=== PATIENT | female | born 1985 | race Caucasian/White ===

== ENCOUNTER → 2018-07-07 | Outpatient (CLI) | payer BC ==
[2018-07-07 17:31] LABS: Anion Gap 10 mmol/L; Blood Urea Nitrogen 8 mg/dL (7-17); Carbon Dioxide 26 mmol/L (22-30); Chloride 105 mmol/L (98-107); Glucose 96 mg/dL (74-99); Potassium 4.3 mmol/L (3.5-5.1); Sodium 141 mmol/L (137-145)
[2018-07-07 17:34] LABS: Basophils # (A) 0.1 k/uL (0-0.2); Basophils % (A) 1 %; Eosinophils # (A) 0.2 k/uL (0-0.7); Eosinophils % (A) 4 %; HCT 37.5 % (34.0-46.0); HGB 12.6 gm/dL (11.4-16.0); Lymphocytes # (A) 2.2 k/uL (1.0-4.8); Lymphocytes % (A) 37 %; MCH 29.9 pg (25.0-35.0); MCHC 33.7 g/dL (31.0-37.0); MCV 88.6 fL (80.0-100.0); Mean Platelet Volume 9.8; Monocytes # (A) 0.4 k/uL (0-1.0); Monocytes % (A) 7 %; Neutrophils % (A) 50 %; Platelet Count 185 k/uL (150-450); RBC 4.23 m/uL (3.80-5.40)
== END | disposition home or self-care (01) ==
LOC: LABPAT 16:41
PROVIDERS: ATTEND Obstetrics & Gynecology
DX: Z01.818 Encounter for other preprocedural examination (principal)
CPT/HCPCS: 36415; 80051; 82565; 82947; 84520; 85025; 87086

== ENCOUNTER 2018-07-13 05:34 | Day surgery (SDC) | payer BC ==
--- NOTE | 2018-07-08 16:33 | HP ---
HISTORY AND PHYSICAL DATE OF ADMISSION: 07/12/2018. HISTORY: This is a 33-year-old 5, para 3-0-2-3 woman with a long-standing history of severe dysmenorrhea, menorrhagia and pelvic pain. She has findings of adenomyosis on pelvic ultrasound. She desires definitive surgical management for her severe symptoms in the form of robotic-assisted laparoscopic-assisted vaginal hysterectomy. ALLERGIES: NONE. MEDICATIONS: 1. Anaprox DS 550 mg b.i.d. p.r.n. 2. Fluvoxamine 25 mg at bedtime. PAST MEDICAL HISTORY: Osteogenesis imperfecta. PAST SURGICAL HISTORY: section x3, in 2002, 2007 and 2008. [employer] INSTALLER HISTORY: She is a 5, para 3-0-2-3 with a history of 3 sections and 2 spontaneous miscarriages. She has had a tubal ligation and no history of abnormal Pap smears or STDs. SOCIAL HISTORY: She is engaged to be . She denies tobacco, alcohol or drug use. FAMILY HISTORY: Osteogenesis imperfecta in multiple family members. REVIEW OF SYSTEMS: Positive for severe dysmenorrhea, dyspareunia, menorrhagia and pelvic pain. Positive for bone fractures in the past. Negative for fevers, chills, weight gain, weight loss, shortness of breath, chest pain, nausea, vomiting, bowel changes, dysuria, hematuria, headaches or other neurologic signs, depression, anxiety. PHYSICAL EXAMINATION: Height 5 feet 3-3/4 inches, weight 118 pounds, blood pressure 110/80. In general, this is a pleasant female who is slim and in no apparent distress. HEENT exam is unremarkable, with no palpable lymphadenopathy or thyromegaly. The lungs are clear to auscultation bilaterally. Her heart has a regular rate and rhythm with no detectable murmur. The abdomen is slim, soft and with mild generalized lower quadrant tenderness but no rebound, no guarding and no flank pain. On pelvic examination, she has normal female external genitalia without lesions or irritation. On bimanual examination, the uterus is small but tender, with no palpable adnexal or pelvic masses noted. ASSESSMENT: This is a 33-year-old 5, para 3-0-2-3 woman with a history of dysmenorrhea, menorrhagia, pelvic pain and adenomyosis on pelvic imaging. She has had a tubal ligation. She desires definitive surgical management via hysterectomy. She is scheduled to undergo robotic-assisted laparoscopic-assisted vaginal hysterectomy with diagnostic cystoscopy. The risks of these procedures have been discussed and include but are not limited to bleeding, transfusion, damage to bowel, bladder, ureters, other pelvic or intraabdominal structures, infection, ongoing pelvic pain, anesthesia complications, DVT, PE and/or . The patient understands that her risks of possible bladder injury are higher secondary to her history of 3 previous sections. The anesthesiologist and the operating room team will be notified regarding her history of osteogenesis imperfecta with extra care taken at the time of positioning. The patient understands all these risks and agrees to proceed and consent has been obtained. MMODL / IJN: [id number] /
[~2018-07-13 05:34] MED LIST: ceFAZolin IN SWFI 2 GM/20 ML SYRINGE IVP ONE
[2018-07-13] MEDS ORDERED: MIDAZOLAM (PF) 2 MG/2 ML VIAL IV PRN (05:35)
[2018-07-13] MEDS ORDERED: ONDANSETRON 4 MG/2 ML VIAL IVP ONE (05:35)
[2018-07-13] MEDS ORDERED: DEXAMETHASONE SOD PHOSPHATE 10 MG/ML 1 ML VIAL IV ONE (05:35)
[2018-07-13] MEDS ORDERED: fentaNYL (PF) 50 MCG/ML 2 ML AMP IV PRN (05:35)
[2018-07-13] MEDS: LIDOCAINE 1% 20 ML VIAL (10MG/ML) FOR IV START INTRADERMA PRN ×2 (06:30→06:33)
[2018-07-13] MEDS: LACTATED RINGERS 1,000 ML IV SCH ×3 (06:33→19:57)
[2018-07-13] MEDS ORDERED: GLYCOPYRROLATE 0.2 MG/ML 2 ML VIAL ONE (07:24)
[2018-07-13] MEDS ORDERED: ROCURONIUM BROMIDE 10 MG/ML 10 ML VIAL IV ONE (07:24)
[2018-07-13] MEDS ORDERED: fentaNYL (PF) 50 MCG/ML 2 ML AMP ONE (07:24)
[2018-07-13] MEDS ORDERED: MIDAZOLAM 2 MG/2 ML VIAL ONE (07:24)
[2018-07-13] MEDS ORDERED: diphenhydrAMINE 50 MG/ML 1 ML VIAL ONE (07:24)
[2018-07-13] MEDS ORDERED: ESMOLOL 100 MG/10 ML VIAL ONE (07:24)
[2018-07-13] MEDS ORDERED: HYDROmorphone (PF) 1 MG/ML ONE (07:24)
[2018-07-13] MEDS ORDERED: PROPOFOL 10 MG/ML 20 ML VIAL IV ONE (07:24)
[2018-07-13] MEDS ORDERED: LIDOCAINE 1% INJ 10MG/ML (20 ML MDV) ONE (07:24)
[2018-07-13] MEDS ORDERED: NEOSTIGMINE 1 MG/ML 10 ML VIAL ONE (07:24)
[2018-07-13] MEDS ORDERED: BUPIVACAINE (PF) 0.5% 30 ML VIAL SQ ONE (08:09)
[2018-07-13] MEDS ORDERED: ACETAMINOPHEN IV (For NPO) 1,000 MG in EMPTY BAG 1 BAG IVPB ONE (10:00)
[2018-07-13] MEDS ORDERED: SIMETHICONE 80 MG CHEWABLE PO PRN (10:00)
[2018-07-13] MEDS ORDERED: METOCLOPRAMIDE 5 MG/ML 2 ML VIAL IVP PRN (10:00)
[2018-07-13] MEDS ORDERED: ONDANSETRON 4 MG/2 ML VIAL IVP PRN (10:00)
[2018-07-13] MEDS ORDERED: Acetaminophen-Codeine 300-30mg TAB PO PRN (10:00)
[2018-07-13] MEDS ORDERED: diphenhydrAMINE 50 MG/ML 1 ML VIAL IVP PRN (10:00)
--- NOTE | 2018-07-13 10:00 | P.OP ---
Date of Procedure: 07/13/18 Preoperative Diagnosis: Dysmenorrhea, menorrhagia, pelvic pain, adenomyosis Postoperative Diagnosis: Same plus extensive pelvic adhesions, bilateral hydrosalpinx Procedure(s) Performed: Robotic-assisted laparoscopic assisted vaginal hysterectomy, bilateral salpingectomy, left oophorectomy and cystoscopy Anesthesia: LOBITO Surgeon: Elissa Thompson Supervisor Bottle Machines #1: Dyan Garcia Estimated Blood Loss (ml): 50 IV fluids (ml): 600 Urine output (ml): 500 Pathology: other (Uterus, bilateral fallopian tubes and left ovary) Disposition: PACU Operative Findings: Uterus with small anterior fibroid, bilateral hydrosalpinx and evidence of previous tubal ligation, dense pelvic adhesions involving the bladder to the anterior low uterine segment and the left adnexa to the posterior cornea of the uterus Description of Procedure: After the patient and her family were met in the preoperative holding area and all questions were answered, she was taken to the operating room where anesthetic was administered without incident. She was in positioned, prepped and draped in the dorsal lithotomy position. Speculum was placed in the vagina and the cervix was grasped anteriorly with a single-tooth tenaculum. The uterus was sounded to 9 cm. Cervix was then sequentially dilated with Hegar dilators to allow for insertion of the BioActor uterine manipulator. This was inserted and the balloon inflated with tendency's of air. The cup was secured around the cervix. Mg catheter was then placed in the bladder. Attention was then turned to the abdomen. Gloves were changed on an days supraumbilical skin incision was made. The anterior abdominal wall was grasped and elevated. The patient was then inserted without difficulty. Saline drop test indicated intraperitoneal placement. CO2 gas was then connected and initial filling pressure was 3 mm. The abdomen was then insufflated to a total filling pressure of 15 mm of CO2 gas. The Veress needle was removed and the blade less 12 mmtrocar was then utilized to introduce the camera under direct visualization. Intraperitoneal placement was confirmed. The patient was placed in steep Trendelenburg. Under direct visualization a right and left da Federico ports were placed and a right upper quadrant 10 mm assistant refinery operator port was placed. The robot was then docked per protocol without difficulty. The bipolar Franchesca graspers were placed in arm 2 and the monopolar kathy were placed in arm 1. At this time I went to the console. The above findings were noted in the pelvis. The right on fallopian tube was grasped, elevated and the the mesosalpinx sharply dissected away from the underlying ovary. The tubo-ovarian pedicle was then sequentially cauterized and cut. The round ligament was sequentially cauterized and cut. The anterior and posterior leaves of the broad ligament did not easily separate secondary to extensive scarring. Therefore this was carefully and meticulously on dissected away down to the level of the uterine vasculature. The bladder was addressed using sharp monopolar cautery to take down the dense adhesions at the pre-existing scar. Sponge was introduced into the pelvis to allow for further careful delicate blunt dissection. The scarring was significantly vascularity and care was taken to control bleeding using the electrocautery away from the area of the bladder. The left side was then addressed. The left ovary was adherent to the left cornua of the uterus with no avascular plane on noted. I did not feel as though the ovary could be easily away without creating bleeding or compromising the ovarian vasculature. Decision therefore was made to take the left ovary. The infundibulopelvic ligament on the left was then sequentially cauterized and cut the round ligament was sequentially cauterized and cut. The anterior posterior leaves of the broad ligament did separate better on the left side and the anterior leaf was incised down to the level of the pre-existing bladder dissection. Further careful dissection allowed for eventual advancement of the bladder anteriorly using a 4 x 4 sponge. The uterine vasculature on the left was then sequentially cauterized. Blanching of the uterus was noted. Sponge was placed in the vagina for preservation the pneumoperitoneum and anterior colpotomy was then made. This was carried around circumferentially following the cervical cup without difficulty. With completion of the colpotomy the uterus was delivered into the vagina. Instrument for changed introducing a needle shuttle truck driver to arm 1 and one grasper to arm 2. The vaginal cuff was copiously irrigated and no active bleeding was noted. The vaginal cuff was then closed using self locking 2-0 Vicryl suture in a running fashion. There was some minimal bleeding noted at the right aspect of the cuff which was controlled by reintroducing the [place] bipolar electrocautery. The course of the right ureter was easily identified the course of the left ureter was not secondary to normal bowel reflection in the area. FloSeal was placed prophylactically along the vaginal cuff for further hemostasis and all surgical sites were observed and noted to be hemostatic. Attention was then turned to the cystoscopy the 30 cystoscope was introduced into the bladder. The interior of the bladder did appear hypervascular however no obvious injuries were noted and the right and left ureteral orifice easily were easily visualized and rapidly spilled clear urine from each side under direct visualization. The cystoscope was then removed and the instruments were removed from the abdomen and the robot was undocked and removed from the patient's bedside. Mg catheter was replaced in the bladder sponge was introduced into the vagina and no active bleeding was noted. All incisions were closed on the abdomen with 4-0 Vicryl suture in a subcutaneous fashion. All counts reported to me as correct by the operating room staff. The patient was awoken from anesthetic without incident and transported recovery area in good condition.
[2018-07-13] MEDS: HYDROmorphone 1 MG/ML 1 ML SYRINGE IVP ONE ×4 (10:25→10:49)
[2018-07-13] MEDS ORDERED: KETOROLAC 30 MG/ML 1 ML VIAL IVP ONE (10:34)
[2018-07-13] MEDS ORDERED: ACETAMINOPHEN IV (For NPO) 1,000 MG/100 ML VIAL IVPB ONE (10:59)
[2018-07-13 12:05] VITALS: BMI 20.7
[2018-07-13] MEDS: IBUPROFEN 600 MG TAB PO PRN (16:38)
[2018-07-13] MEDS: Acetaminophen-Codeine 300-30mg TAB PO PRN ×2 (18:05→23:12)
[2018-07-13] MEDS: SENNOSIDES-DOCUSATE SODIUM 1 EACH TAB PO SCH (20:07)
[2018-07-14] MEDS: IBUPROFEN 600 MG TAB PO PRN ×2 (02:12→08:39)
[2018-07-14] MEDS: LACTATED RINGERS 1,000 ML IV SCH ×2 (05:17→08:58)
[2018-07-14] MEDS: Acetaminophen-Codeine 300-30mg TAB PO PRN ×2 (05:26→11:33)
--- NOTE | 2018-07-14 07:52 | P.DS ---
Providers Expected date of discharge: 07/14/18 Attending physician: Elissa Thompson Primary care physician: Carmen Pérez - Discharge Diagnosis(es) (1) Dysmenorrhea Current Visit: Yes Status: Acute (2) Menorrhagia Current Visit: Yes Status: Acute (3) Pelvic pain Current Visit: Yes Status: Acute (4) Pelvic adhesions Current Visit: Yes Status: Acute (5) Hydrosalpinx Current Visit: Yes Status: Acute Hospital Course: This is a 33-year-old 5 para 3 woman who has a history of dysmenorrhea, menorrhagia, pelvic pain and adenomyosis on pelvic ultrasound who is admitted for surgical management. She underwent a robotic-assisted laparoscopic assisted vaginal hysterectomy with left oophorectomy and bilateral salpingectomy and lysis of pelvic adhesions on 07/13/2018. Intraoperative findings were remarkable for extensive pelvic adhesions involving the bladder to the low anterior uterine segment as well as bilateral hydrosalpinx and scarring of the left adnexa to the posterior cornea of the uterus. Please see the operative report for details. The patient's postoperative course was unremarkable. By the evening of postoperative day 0 she was tolerating a general diet. Her Mg catheter was removed and she was able to spontaneously void without difficulty. She had minimal vaginal bleeding. By the morning of postoperative day #1 she continued to do well. Her pain was controlled with oral pain medications. She had scant vaginal bleeding and was voiding without difficulty. Her abdomen was soft, nontender and her incisions were dry and intact. She was therefore discharged home on postoperative day #1 pending results of her routine postoperative labs. Procedures: Robotic-assisted laparoscopic assisted vaginal hysterectomy, bilateral salpingectomy, left oophorectomy, lysis of pelvic adhesions, cystoscopy Patient Condition at Discharge: Good Plan - Discharge Summary Discharge Rx Participant: No New Discharge Prescriptions: New Acetaminophen-Codeine 300-30mg [Tylenol w/codeine #3] 2 each PO Q6HR PRN #20 tab PRN Reason: Severe Pain Ibuprofen [Motrin] 600 mg PO Q6HR PRN tab PRN Reason: Mild Discomfort No Action Fluoxetine 1 tab PO HS Discharge Medication List Fluoxetine 1 tab PO HS 07/01/18 [History] Acetaminophen-Codeine 300-30mg [Tylenol w/codeine #3] 2 each PO Q6HR PRN #20 tab 07/14/18 [Rx] Ibuprofen [Motrin] 600 mg PO Q6HR PRN tab 07/14/18 [Rx] Follow up Appointment(s)/Referral(s): Elissa Thompson MD [STAFF PHYSICIAN] - 2 Weeks Activity/Diet/Wound Care/Special Instructions: Follow-up in the office in 2 weeks postoperatively. Notify the office with any concerning signs or symptoms including redness or foul drainage from the incisions, heavy vaginal bleeding, severe abdominal or pelvic pain, difficulty voiding, fever greater than 100.5, redness or swelling of the lower extremities. Nothing in the vagina, no intercourse for 8 weeks postoperatively. Avoid heavy lifting or vigorous activity until seen in the office postoperatively. Discharge Disposition: HOME SELF-CARE
[2018-07-14 08:06] LABS: Basophils % (A) 0 %; Eosinophils # (A) 0.1 k/uL (0-0.7); Eosinophils % (A) 1 %; HCT 26.6 % (34.0-46.0); Lymphocytes % (A) 28 %; MCH 30.1 pg (25.0-35.0); MCHC 34.3 g/dL (31.0-37.0); MCV 87.8 fL (80.0-100.0); Mean Platelet Volume 9.9; Monocytes # (A) 0.6 k/uL (0-1.0); Monocytes % (A) 8 %; Neutrophils # (A) 4.4 k/uL (1.3-7.7); Neutrophils % (A) 61 %; Platelet Count 117 k/uL (150-450); RBC 3.04 m/uL (3.80-5.40); RDW 12.7 % (11.5-15.5); WBC 7.2 k/uL (3.8-10.6)
[2018-07-14 08:09] LABS: HGB 9.1 gm/dL (11.4-16.0)
[2018-07-14] MEDS: SENNOSIDES-DOCUSATE SODIUM 1 EACH TAB PO SCH (08:40)
[2018-07-14 09:15] VITALS: BP 115/69; PULSE 88; RESP 16; TEMP 97.9
[2018-07-14] MEDS ORDERED: ONDANSETRON 4 MG TAB PO STA (11:26)
== END 2018-07-14 12:10 | disposition home or self-care (01) ==
LOC: OR 05:34 → 4FBP 10:11 → OR 07-14 12:10
PROVIDERS: ATTEND Obstetrics & Gynecology
DX: N92.0 Excessive and frequent menstruation with regular cycle (principal); N94.6 Dysmenorrhea, unspecified; N80.0 Endometriosis of uterus; N88.8 Other specified noninflammatory disorders of cervix uteri; N72 Inflammatory disease of cervix uteri; D25.2 Subserosal leiomyoma of uterus; N83.8 Other noninflammatory disorders of ovary, fallopian tube and broad ligament; N70.11 Chronic salpingitis; N73.6 Female pelvic peritoneal adhesions (postinfective); Q78.0 Osteogenesis imperfecta; F41.9 Anxiety disorder, unspecified; F32.9 Major depressive disorder, single episode, unspecified; Z82.79 Family history of other congenital malformations, deformations and chromosomal abnormalities; Z79.899 Other long term (current) drug therapy
CPT/HCPCS: 58552; S2900; 81025; 85025; 86850; 86900; 86901; 88307

== ENCOUNTER 2018-07-19 22:36 | Inpatient (IN) | payer BC ==
[2018-07-19] MEDS ORDERED: SODIUM CHLORIDE 0.9% 1,000 ML IV ONE (23:00)
[2018-07-19 23:19] LABS: Appearance,Urine Clear (Clear); Bilirubin,Urine Negative (Negative); Blood,Urine Moderate (Negative); Color,Urine Colorless; Glucose,Urine (UA) Negative (Negative); Ketones,Urine Negative (Negative); Leukocyte Esterase,Urine Negative (Negative); Nitrite,Urine Negative (Negative); Protein,Urine Negative (Negative); Specific Gravity,Urine 1.002 (1.001-1.035); Squamous Epithelial Cell,Urine 1 /hpf (0-4); Urobilinogen,Urine <2.0 mg/dL (<2.0); WBC,Urine 3 /hpf (0-5)
[2018-07-19 23:39] LABS: Basophils # (A) 0.1 k/uL (0-0.2); Basophils % (A) 0 %; Eosinophils # (A) 0.5 k/uL (0-0.7); Eosinophils % (A) 3 %; HCT 29.7 % (34.0-46.0); Lymphocytes % (A) 11 %; MCH 29.3 pg (25.0-35.0); MCHC 33.8 g/dL (31.0-37.0); MCV 86.7 fL (80.0-100.0); Mean Platelet Volume 9.8; Monocytes # (A) 1.2 k/uL (0-1.0); Monocytes % (A) 7 %; Neutrophils # (A) 13.4 k/uL (1.3-7.7); Neutrophils % (A) 77 %; RBC 3.42 m/uL (3.80-5.40); RDW 12.6 % (11.5-15.5); WBC 17.4 k/uL (3.8-10.6)
[2018-07-19 23:45] LABS: Platelet Count 239 k/uL (150-450)
[2018-07-19 23:48] LABS: ALT 51 U/L (9-52); AST 37 U/L (14-36); Albumin 4.2 g/dL (3.5-5.0); Alkaline Phosphatase 31 U/L (38-126); Anion Gap 11 mmol/L; Blood Urea Nitrogen 5 mg/dL (7-17); Calcium 9.6 mg/dL (8.4-10.2); Carbon Dioxide 31 mmol/L (22-30); Chloride 100 mmol/L (98-107); Glucose 89 mg/dL (74-99); Sodium 142 mmol/L (137-145); Total Bilirubin 1.3 mg/dL (0.2-1.3); Total Protein 7.1 g/dL (6.3-8.2)
[2018-07-19 23:50] LABS: INR 0.9 (<1.2); Partial Thromboplastin Time 25.5 sec (22.0-30.0); Prothrombin Time 9.9 sec (9.0-12.0)
[2018-07-19] MEDS ORDERED: POTASSIUM CHLORIDE ER 20 MEQ TAB.ER PO STA (23:58)
--- NOTE | 2018-07-20 01:43 | ED ---
Female Urogenital HPI - General Source: patient Mode of arrival: ambulatory Limitations: no limitations <Jaimee Bryan - Last Filed: 07/20/18 03:36> <Taty Steven - Last Filed: 07/20/18 07:33> - General Chief complaint: Vaginal Bleeding Stated complaint: Vaginal Bleeding, post-op Time Seen by Provider: 07/19/18 22:43 - History of Present Illness Initial comments: 33-year-old female patient who underwent transvaginal hysterectomy on 07/13/[address] Thompson presents to the emergency department today for evaluation of vaginal bleeding. Patient states she's also been sick over the last week with vomiting, diarrhea, and fever. States her temperature was 101.8F yesterday. Patient states she was resting on the couch today when she felt a gush of fluid from her vagina when she went to the bathroom she had soaked through a pad her underwear and pants with blood. Patient describes the blood as bright red. Denies any passage of clots. Denies any change to her abdominal discomfort, states she's had mild discomfort since the surgery. Patient denies any recent rash, shortness breath, chest pain, back pain, numbness, tingling, dizziness, weakness, hematuria, dysuria, urinary urgency, urinary frequency, headache, visual changes, or any other complaints. (Jaimee Bryan) - Related Data Home Medications Medication Instructions Recorded Confirmed Fluoxetine 1 tab PO HS 07/01/18 07/20/18 Previous Rx's Medication Instructions Recorded Acetaminophen-Codeine 300-30mg 2 each PO Q6HR PRN #20 tab 07/14/18 [Tylenol w/codeine #3] Ibuprofen [Motrin] 600 mg PO Q6HR PRN tab 07/14/18 Allergies Allergy/AdvReac Type Severity Reaction Status Date / Time latex Allergy Swelling Verified 07/19/18 22:40 Review of Systems ROS Other: All systems not noted in ROS Statement are negative. <Jaimee Bryan - Last Filed: 07/20/18 03:36> ROS Other: All systems not noted in ROS Statement are negative. <Taty Steven - Last Filed: 07/20/18 07:33> ROS Statement: Those systems with pertinent positive or pertinent negative responses have been documented in the HPI. Past Medical History Additional Past Medical History / Comment(s): adenomyosis, osteogenesis imperfecta, ovarian cysts History of Any Multi-Drug Resistant Organisms: None Reported Past Surgical History: Section, Hysterectomy, Orthopedic Surgery Additional Past Surgical History / Comment(s): left elbow Past Anesthesia/Blood Transfusion Reactions: No Reported Reaction Past Psychological History: Depression Smoking Status: Former smoker Past Alcohol Use History: Occasional Past Drug Use History: None Reported - Past Family History Mother Family Medical History: Cancer Additional Family Medical History / Comment(s): cervical <Jaimee Bryan M - Last Filed: 07/20/18 03:36> General Exam Limitations: no limitations General appearance: alert, in no apparent distress, other (This is a well- developed, well-nourished adult female patient in no acute distress. Vital signs upon presentation are temperature 98.3F, pulse 85, respirations 18, blood pressure 120/79, pulse ox 99% on room air.) Eye exam: Present: normal appearance, PERRL, EOMI. Absent: scleral icterus, conjunctival injection, periorbital swelling ENT exam: Present: normal exam, normal oropharynx, mucous membranes moist Respiratory exam: Present: normal lung sounds bilaterally. Absent: respiratory distress, wheezes, rales, rhonchi, stridor Cardiovascular Exam: Present: regular rate, normal rhythm, normal heart sounds. Absent: systolic murmur, diastolic murmur, rubs, gallop, clicks GI/Abdominal exam: Present: soft, tenderness (Mild suprapubic), normal bowel sounds. Absent: distended, guarding, rebound, rigid External exam: Present: normal external exam Speculum exam: Present: vaginal bleeding (Dark red vaginal bleeding noted) Neurological exam: Present: alert, oriented X3, CN II-XII intact Psychiatric exam: Present: normal affect, normal mood Skin exam: Present: warm, dry, intact, normal color. Absent: rash <Jaimee Bryan M - Last Filed: 07/20/18 03:36> Course Vital Signs 07/19/18 07/20/18 07/20/18 22:38 02:13 03:28 Temperature 98.3 F 98.1 F 98.5 F Pulse Rate 85 80 95 Respiratory 18 18 18 Rate Blood Pressure 120/79 113/73 111/78 O2 Sat by Pulse 99 95 100 Oximetry Medical Decision Making - Lab Data Result diagrams: 07/19/18 23:15 07/19/18 23:15 - Radiology Data Radiology results: report reviewed, image reviewed <Jaimee Bryan - Last Filed: 07/20/18 03:36> - Lab Data Result diagrams: 07/19/18 23:15 07/19/18 23:15 <Taty Steven - Last Filed: 07/20/18 07:33> - Medical Decision Making 33-year-old female patient presented to the emergency department today for evaluation of vaginal bleeding after transvaginal hysterectomy 1 week ago. Pelvic examination did reveal small amount of dark red vaginal bleeding. Labs reviewed and did reveal white blood cell count is 17.4, hemoglobin of 10, potassium of 3.0. Urinalysis shows no evidence for infection. CT abdomen and pelvis was obtained and did show abnormal fluid collections possible cuff dehiscence, and gas noted within the bladder. My attending Dr. Steven did discuss the case with the surgeon Dr. Thompson. She'll be started on Unasyn and admitted for further evaluation. (Jaimee Bryan) I personally saw and evaluated the patient, I offered to repeat the pelvic exam as the nurse practitioner was unable to visualize the vaginal cuff however the patient states that she does not want another pelvic exam at this time. I advised patient that based on her leukocytosis and her symptoms we do need to obtain a CT of the abdomen. CT did reveal multiple abnormalities which I discussed with her technical editor Dr. Thompson who recommends admission and IV antibiotics. Request that due to the presence of air in the bladder a Mg catheter be ordered. The plan was discussed with the patient who is agreeable. Patient was admitted to the gynecologic service (Taty Steven) - Lab Data Lab Results 07/19/18 07/19/18 07/19/18 Range/Units 23:09 23:15 23:15 WBC 17.4 H (3.8-10.6) k/uL RBC 3.42 L (3.80-5.40) m/uL Hgb 10.0 L (11.4-16.0) gm/dL Hct 29.7 L (34.0-46.0) % MCV 86.7 (80.0-100.0) fL MCH 29.3 (25.0-35.0) pg MCHC 33.8 (31.0-37.0) g/dL RDW 12.6 (11.5-15.5) % Plt Count 239 D (150-450) k/uL Neutrophils % 77 % Lymphocytes % 11 % Monocytes % 7 % Eosinophils % 3 % Basophils % 0 % Neutrophils # 13.4 H (1.3-7.7) k/uL Lymphocytes # 2.0 (1.0-4.8) k/uL Monocytes # 1.2 H (0-1.0) k/uL Eosinophils # 0.5 (0-0.7) k/uL Basophils # 0.1 (0-0.2) k/uL PT (9.0-12.0) sec INR (<1.2) APTT (22.0-30.0) sec Sodium 142 (137-145) mmol/L Potassium 3.0 L (3.5-5.1) mmol/L Chloride 100 (98-107) mmol/L Carbon Dioxide 31 H (22-30) mmol/L Anion Gap 11 mmol/L BUN 5 L (7-17) mg/dL Creatinine 0.50 L (0.52-1.04) mg/dL Est GFR (CKD-EPI)AfAm >90 (>60 ml/min/1.73 sqM) Est GFR (CKD-EPI)NonAf >90 (>60 ml/min/1.73 sqM) Glucose 89 (74-99) mg/dL Calcium 9.6 (8.4-10.2) mg/dL Magnesium (1.6-2.3) mg/dL Total Bilirubin 1.3 (0.2-1.3) mg/dL AST 37 H (14-36) U/L ALT 51 (9-52) U/L Alkaline Phosphatase 31 L (38-126) U/L Total Protein 7.1 (6.3-8.2) g/dL Albumin 4.2 (3.5-5.0) g/dL Urine Color Colorless Urine Appearance Clear (Clear) Urine pH 6.0 (5.0-8.0) Ur Specific Delta 1.002 (1.001-1.035) Urine Protein Negative (Negative) Urine Glucose (UA) Negative (Negative) Urine Ketones Negative (Negative) Urine Blood Moderate H (Negative) Urine Nitrite Negative (Negative) Urine Bilirubin Negative (Negative) Urine Urobilinogen <2.0 (<2.0) mg/dL Ur Leukocyte Esterase Negative (Negative) Urine WBC 3 (0-5) /hpf Ur Squamous Epith Cells 1 (0-4) /hpf 07/19/18 07/19/18 Range/Units 23:15 23:15 WBC (3.8-10.6) k/uL RBC (3.80-5.40) m/uL Hgb (11.4-16.0) gm/dL Hct (34.0-46.0) % MCV (80.0-100.0) fL MCH (25.0-35.0) pg MCHC (31.0-37.0) g/dL RDW (11.5-15.5) % Plt Count (150-450) k/uL Neutrophils % % Lymphocytes % % Monocytes % % Eosinophils % % Basophils % % Neutrophils # (1.3-7.7) k/uL Lymphocytes # (1.0-4.8) k/uL Monocytes # (0-1.0) k/uL Eosinophils # (0-0.7) k/uL Basophils # (0-0.2) k/uL PT 9.9 (9.0-12.0) sec INR 0.9 (<1.2) APTT 25.5 (22.0-30.0) sec Sodium (137-145) mmol/L Potassium (3.5-5.1) mmol/L Chloride (98-107) mmol/L Carbon Dioxide (22-30) mmol/L Anion Gap mmol/L BUN (7-17) mg/dL Creatinine (0.52-1.04) mg/dL Est GFR (CKD-EPI)AfAm (>60 ml/min/1.73 sqM) Est GFR (CKD-EPI)NonAf (>60 ml/min/1.73 sqM) Glucose (74-99) mg/dL Calcium (8.4-10.2) mg/dL Magnesium 2.2 (1.6-2.3) mg/dL Total Bilirubin (0.2-1.3) mg/dL AST (14-36) U/L ALT (9-52) U/L Alkaline Phosphatase (38-126) U/L Total Protein (6.3-8.2) g/dL Albumin (3.5-5.0) g/dL Urine Color Urine Appearance (Clear) Urine pH (5.0-8.0) Ur Specific Delta (1.001-1.035) Urine Protein (Negative) Urine Glucose (UA) (Negative) Urine Ketones (Negative) Urine Blood (Negative) Urine Nitrite (Negative) Urine Bilirubin (Negative) Urine Urobilinogen (<2.0) mg/dL Ur Leukocyte Esterase (Negative) Urine WBC (0-5) /hpf Ur Squamous Epith Cells (0-4) /hpf - Radiology Data CT abdomen and pelvis with contrast was obtained. Report was reviewed in its entirety. Impression by Dr. edward shows absent uterus. Correlate with given history of recent hysterectomy. Approximate 6 sonometer somewhat irregular collection with heterogenous hyperdense contents and gas bubble just superior to the expected site of the vaginal cuff. Some rib enhancement. Differential diagnosis includes abscess, surgical hemostatic material, hematoma with or without infection, correlate with surgical history. Possible dehiscence of the vaginal cuff. Small amount of free fluid in the pelvis with hyperdense contents. Likely representing hemoperitoneum 4/residual blood products. Curvilinear hypodensities in the pelvis thought to be venous structures run the vaginal cuff region. Active bleeding not excluded. Gas within the urinary bladder. Correlate for history of recent procedure infection. Also consider fistula with adjacent bowel or collection near the vaginal cuff. Thickening of the rectosigmoid colon and in the pelvis. May be due to partial distention. Could also be reactive changes versus colitis. Small liver and renal low- density lesions, not adequately characterized. (Jaimee Bryan) Disposition Decision to Admit Reason: Admit from EC Decision Date: 07/20/18 Decision Time: 02:38 <Jaimee Bryan - Last Filed: 07/20/18 03:36> <Taty Steven - Last Filed: 07/20/18 07:33> Clinical Impression: Vaginal bleeding, Post op infection Disposition: ADMITTED IP TO THIS [facility] Condition: Serious
--- NOTE | 2018-07-20 02:31 | CT ---
EXAM: CT Abdomen and Pelvis With Intravenous Contrast CLINICAL HISTORY: ITS.REASON CT Reason: Pain Patient presents with heavy vaginal bleeding after hysterectomy x1 week ago. No prior. DLP 620.1 TECHNIQUE: Axial computed tomography images of the abdomen and pelvis with intravenous contrast. CTDI is 6.6 mGy and DLP is 620.1 mGy-cm. This CT exam was performed using one or more of the following dose reduction techniques: automated exposure control, adjustment of the mA and/or kV according to patient size, and/or use of iterative reconstruction technique. 100mL of isovue intravenous contrast. COMPARISON: No relevant prior studies available. FINDINGS: Lung bases: Unremarkable. No mass. No consolidation. ABDOMEN: Liver: 8 mm low-density lesion in the hepatic dome, not adequately characterized. Gallbladder and bile ducts: Unremarkable. No calcified stones. No ductal dilation. Pancreas: Unremarkable. No mass. No ductal dilation. Spleen: Unremarkable. No splenomegaly. Adrenals: Unremarkable. No mass. Kidneys and ureters: Small bilateral renal low-density lesions, up to 8 mm. Not adequately characterized, however thought to be cysts. Stomach and bowel: Apparent wall thickening of the rectosigmoid colon in the pelvis. May be due to partial distention. No evidence of bowel obstruction. Mild thickening/enhancement of small bowel loops in the pelvis. PELVIS: Appendix: Normal appendix. Bladder: Gas within the urinary bladder and mild wall thickening. Reproductive: Absent uterus. Approximately 6 cm somewhat irregular collection with heterogeneous hyperdense contents and gas bubbles just superior to the expected site of the vaginal cuff. Some rim enhancement. Possible dehiscence of the vaginal cuff. Series 203, image 70. Mild fat stranding in the pelvis. ABDOMEN and PELVIS: Intraperitoneal space: Small amount of free fluid in the pelvis with hyperdense contents. Likely represents blood products. Surgical clips in the left posterior pelvis. Bones/joints: No acute fracture. No dislocation. Soft tissues: Gas in the right abdominal wall subcutaneous tissues and some stranding. May reflect recent postop changes/injections. Small fat-containing umbilical hernia. Vasculature: Curvilinear hyperdensities in the pelvis thought to be venous structures around the vaginal cuff region. Active bleeding not excluded. No abdominal aortic aneurysm. Lymph nodes: Unremarkable. No enlarged lymph nodes. IMPRESSION: 1. Absent uterus. Correlates with given history of recent hysterectomy. 2. Approximately 6 cm somewhat irregular collection with heterogeneous hyperdense contents and gas bubbles just superior to the expected site of the vaginal cuff. Some rim enhancement. Differential diagnosis includes abscess, surgical hemostatic material, hematoma with or without infection. Correlate with surgical history. 3. Possible dehiscence of the vaginal cuff. 4. Small amount of free fluid in the pelvis with hyperdense contents. Likely represents hemoperitoneum/residual blood products. 5. Curvilinear hyperdensities in the pelvis thought to be venous structures around the vaginal cuff region. Active bleeding not excluded. 6. Gas within the urinary bladder. Correlate for history of recent procedure or infection. Also consider fistula with adjacent bowel or collection near the vaginal cuff. 7. Apparent wall thickening of the rectosigmoid colon in the pelvis. May be due to partial distention. DDX reactive changes/colitis. 8. Mild thickening/enhancement of small bowel loops in the pelvis. May represent reactive changes/enteritis. 9. Small liver and renal low-density lesions, not adequately characterized. Attention on follow-up/MRI. <MYCVCSECTION> Critical Value Communications 07/20/18 02:16 Call Doctor Regarding Above results, called Dr. Hermosillo on 07/20 02:16 (-04:00) 07/20/18 02:44 Verify Receipt Verified receipt with ER TANIYA Hermosillo on 07/20 02:43 (-04:00)
[2018-07-20] MEDS ORDERED: HYDROcodone/APAP 5-325MG 1 EACH TAB PO PRN (02:47)
[2018-07-20] MEDS ORDERED: ONDANSETRON 4 MG/2 ML VIAL IVP PRN (02:47)
[2018-07-20] MEDS ORDERED: NALOXONE 0.4 MG/ML 1 ML VIAL IV PRN (02:47)
[2018-07-20] MEDS ORDERED: AMPICILLIN-SULBACTAM 3 GM in SODIUM CHLORIDE 0.9% 100 ML IVPB ONE (03:00)
[2018-07-20] MEDS ORDERED: LIDOCAINE URO-JET JELLY 2% 5 ML KIT URETHRAL ONE (03:04)
[2018-07-20] MEDS ORDERED: MORPHINE SULFATE 4 MG/ML SYRINGE IVP STA (03:37)
[2018-07-20] MEDS: SODIUM CHLORIDE 0.9% 1,000 ML IV SCH ×3 (03:44→20:24)
[2018-07-20 08:46] LABS: Basophils # (A) 0.1 k/uL (0-0.2); Basophils % (A) 0 %; Eosinophils # (A) 0.7 k/uL (0-0.7); Eosinophils % (A) 5 %; HCT 26.8 % (34.0-46.0); HGB 8.7 gm/dL (11.4-16.0); Lymphocytes % (A) 15 %; MCH 28.6 pg (25.0-35.0); MCHC 32.4 g/dL (31.0-37.0); MCV 88.4 fL (80.0-100.0); Mean Platelet Volume 9.2; Monocytes # (A) 0.9 k/uL (0-1.0); Monocytes % (A) 6 %; Neutrophils # (A) 9.4 k/uL (1.3-7.7); Neutrophils % (A) 71 %; Platelet Count 240 k/uL (150-450); RBC 3.03 m/uL (3.80-5.40); RDW 12.7 % (11.5-15.5); WBC 13.2 k/uL (3.8-10.6)
[2018-07-20] MEDS ORDERED: PIPERACILLIN-TAZOBACTAM 3.375 GM in SODIUM CHLORIDE 0.9% 100 ML IVPB SCH (09:00)
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
[2018-07-20 09:06] LABS: ALT 47 U/L (9-52); AST 24 U/L (14-36); Albumin 3.4 g/dL (3.5-5.0); Alkaline Phosphatase 26 U/L (38-126); Anion Gap 6 mmol/L; Blood Urea Nitrogen 4 mg/dL (7-17); Calcium 8.7 mg/dL (8.4-10.2); Carbon Dioxide 31 mmol/L (22-30); Chloride 107 mmol/L (98-107); Glucose 90 mg/dL (74-99); Potassium 3.3 mmol/L (3.5-5.1); Sodium 144 mmol/L (137-145)
[2018-07-20] MEDS ORDERED: ACETAMINOPHEN TAB 325 MG TAB PO PRN (09:11)
[2018-07-20] MEDS: IOPAMIDOL-300 CONTRAST 30 ML VIAL (ORAL USE) PO PRN ×2 (09:46→10:33)
--- NOTE | 2018-07-20 12:31 | CT ---
EXAMINATION TYPE: CT pelvis wo con DATE OF EXAM: 07/20/2018 COMPARISON: 07/20/2018 at 1:32 AM. HISTORY: Bleeding after hysterectomy. Extreme pain with urinary catheter. CT DLP: 203.8 mGycm Automated exposure control for dose reduction was used. FINDINGS: Vicarious excretion of contrast is seen layering within the dependent gallbladder. Subcutaneous emphy sema from the known recent surgery is present with foci of pneumoperitoneum collected in the deep pel vis. Contrast has extended through the small bowel into the ascending colon. Given this fact the loculated fluid collection with predominantly air and phlegmonous change in the postoperative surgical bed fro m prior hysterectomy more clearly measures 4.6 x 5.8 cm in greatest dimension. Remaining enhancement on the prior exam of 07/20/2018 may relate to abscess or recent surgical change. Phlegmonous changes o f the pelvis have slightly improved in the interim. Urinary bladder catheter is placed and nondepende nt air relates to catheter placement. A small amount of free fluid layers dependently in the pelvis. Cystic changes seen of the right ovary with numerous follicles, poorly defined. There is some reactiv e wall thickening of the sigmoid colon adjacent to the inflammatory change. IMPRESSION: 1. POSTOPERATIVE FLUID COLLECTION IN THE UTERINE SURGICAL GLAND DOES NOT COMMUNICATE WITH BOWEL AND M EASURES APPROXIMATELY 5.8 CM IN LARGEST DIMENSION. NO EXTRAVASATION OF CONTRAST IS SEEN FROM THE LAUREN L TO REPRESENT PERFORATION. NUMEROUS FOCI OF AIR MAY PARTIALLY BE ON THE BASIS OF SURGICAL HEMOSTATIC MATERIAL. ALTHOUGH ABSCESS IS POSSIBLE IS CLINICALLY UNLIKELY HEMATOMA WITH POSTSURGICAL AIR IS C URRENTLY CONSIDERED MORE LIKELY. 2. ALTHOUGH THERE REMAINS MINIMAL HIGH DENSITY PNEUMOPERITONEUM NO INCREASING ACCUMULATION IS SEEN AN D THEREFORE VENOUS BLEED QUESTIONED ON THE PRIOR IS UNLIKELY. 3. LONG SEGMENT BOWEL WALL THICKENING OF THE RECTOSIGMOID COLON IS LIKELY REACTIVE.
--- NOTE | 2018-07-20 15:58 | P.PN ---
Progress Note - Text Progress Note Date: 07/20/[address] pelvis with patient and her mother. No evidence of acute bowel or bladder injury. Interval slight decrease in size of air and fluid collection at the vaginal cuff. Findings consistent with abscess versus intraoperative hypercoagulable material placed at the cuff. No evidence of active bleeding. She continues to have some dark red vaginal drainage. Pain is well-controlled with oral pain medications and she is feeling hungry. Plan is to continue antibiotics for at least 24 hours. Labs pending tomorrow morning. Potential discharge home if remained afebrile and vaginal drainage stable or decreased.
[2018-07-20] MEDS: IBUPROFEN 600 MG TAB PO PRN ×2 (17:04→23:54)
[2018-07-20] MEDS: PIPERACILLIN-TAZOBACTAM 3.375 GM in SODIUM CHLORIDE 0.9% 100 ML IVPB SCH ×2 (17:15→23:54)
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
[2018-07-21] MEDS: IBUPROFEN 600 MG TAB PO PRN (06:48)
[2018-07-21 07:00] LABS: ALT 40 U/L (9-52); AST 27 U/L (14-36); Albumin 3.2 g/dL (3.5-5.0); Alkaline Phosphatase 21 U/L (38-126); Anion Gap 6 mmol/L; Blood Urea Nitrogen 5 mg/dL (7-17); Calcium 8.5 mg/dL (8.4-10.2); Carbon Dioxide 29 mmol/L (22-30); Chloride 107 mmol/L (98-107); Glucose 87 mg/dL (74-99); Sodium 142 mmol/L (137-145); Total Bilirubin 1.3 mg/dL (0.2-1.3); Total Protein 5.8 g/dL (6.3-8.2)
[2018-07-21 07:01] LABS: Basophils % (A) 0 %; Eosinophils # (A) 0.7 k/uL (0-0.7); Eosinophils % (A) 6 %; HCT 27.4 % (34.0-46.0); HGB 9.2 gm/dL (11.4-16.0); Hypochromasia Slight; Lymphocytes # (A) 1.8 k/uL (1.0-4.8); Lymphocytes % (A) 14 %; MCH 29.5 pg (25.0-35.0); MCHC 33.4 g/dL (31.0-37.0); MCV 88.4 fL (80.0-100.0); Mean Platelet Volume 9.1; Monocytes # (A) 0.9 k/uL (0-1.0); Monocytes % (A) 7 %; Neutrophils # (A) 8.8 k/uL (1.3-7.7); Neutrophils % (A) 71 %; Platelet Count 320 k/uL (150-450); Poikilocytosis Slight; RDW 12.8 % (11.5-15.5); WBC 12.4 k/uL (3.8-10.6)
[2018-07-21 07:03] LABS: Potassium 3.4 mmol/L (3.5-5.1)
--- NOTE | 2018-07-21 07:32 | P.DS ---
Providers Date of admission: 07/20/18 03:39 Expected date of discharge: 07/21/18 Attending physician: Elissa Thompson Consults: 07/20/18 09:02 Consult Physician Routine Consulting Provider: Constantine Zhu Consult Reason/Comments: self harming behavior Do you want consulting provider notified?: Yes Primary care physician: Carmen Pérez - Discharge Diagnosis(es) (1) Post op infection Current Visit: Yes Status: Acute (2) Vaginal bleeding Current Visit: Yes Status: Acute (3) Self-harming behavior Current Visit: Yes Status: Acute (4) S/P hysterectomy Current Visit: Yes Status: Acute (5) Major depressive disorder Current Visit: Yes Status: Acute Hospital Course: This is a 33-year-old woman who was admitted approximately one week postoperatively from a robotic-assisted vaginal hysterectomy with episode of vaginal bleeding. This was precipitated by several days of nausea and vomiting as well as an in the unsual psychotic episode with self-harm. Upon her initial admission there were concerns for possible vaginal cuff dehiscence, bowel or bladder perforation however this was ruled out on physical exam as well as repeat computed tomography scan with contrast. She was placed on antibiotics for possible vaginal cuff abscess and initially elevated white blood cell count. She remained afebrile throughout her stay and all cultures were preliminarily negative. Her WBCs decreased. Antibiotics were therefore discontinued on discharge. She had a psychiatric consult which it was felt her self-harm episode was consistent with an acute medication withdrawal. She was restarted on her Prozac twice daily and will follow-up in the outpatient setting. Pertinent Studies: CT abdomen and pelvis Patient Condition at Discharge: Good Plan - Discharge Summary Discharge Rx Participant: Yes New Discharge Prescriptions: New Ibuprofen [Motrin] 600 mg PO QID PRN tab PRN Reason: Pain FLUoxetine HCL [PROzac] 20 mg PO BID #60 cap Acetaminophen Tab [Tylenol] 650 mg PO Q6HR PRN tab PRN Reason: Fever And/ Or Pain Discontinued fluvoxaMINE [Luvox] 50 mg PO HS No Action Acetaminophen-Codeine 300-30mg [Tylenol w/codeine #3] 1 tab PO Q6HR PRN PRN Reason: Severe Pain Naproxen Sodium 550 mg PO Q12H Discharge Medication List Acetaminophen-Codeine 300-30mg [Tylenol w/codeine #3] 1 tab PO Q6HR PRN 07/20/18 [History] Naproxen Sodium 550 mg PO Q12H 07/20/18 [History] Acetaminophen Tab [Tylenol] 650 mg PO Q6HR PRN tab 07/21/18 [Rx] FLUoxetine HCL [PROzac] 20 mg PO BID #60 cap 07/21/18 [Rx] Ibuprofen [Motrin] 600 mg PO QID PRN tab 07/21/18 [Rx] Follow up Appointment(s)/Referral(s): Beto Morales MD [Primary Care Provider] - 1-2 days Elissa Thompson MD [STAFF PHYSICIAN] - 07/28/18 Activity/Diet/Wound Care/Special Instructions: Notify the office with any increase in bright red vaginal bleeding, severe abdominal or pelvic pain, fever greater than 100.5 or worsening/changing mood. Discharge Disposition: HOME SELF-CARE
[2018-07-21 08:44] VITALS: BP 112/75; PULSE 94; RESP 20; TEMP 98.3
[2018-07-21] MEDS: PIPERACILLIN-TAZOBACTAM 3.375 GM in SODIUM CHLORIDE 0.9% 100 ML IVPB SCH (08:59)
[2018-07-21] MEDS ORDERED: FLUoxetine HCL 20 MG CAP PO SCH (09:00)
== END 2018-07-21 11:00 | disposition home or self-care (01) | DRG 863 ==
LOC: EC 22:36 → 6PED 07-20 03:39
PROVIDERS: ADMIT Obstetrics & Gynecology; ATTEND Obstetrics & Gynecology
DX: T81.49XA Infection following a procedure, other surgical site, initial encounter (principal); N99.820 Postprocedural hemorrhage of a genitourinary system organ or structure following a genitourinary system procedure; F33.1 Major depressive disorder, recurrent, moderate; F19.939 Other psychoactive substance use, unspecified with withdrawal, unspecified; Q78.0 Osteogenesis imperfecta; N76.0 Acute vaginitis; Z87.891 Personal history of nicotine dependence; Z90.710 Acquired absence of both cervix and uterus; Z91.410 Personal history of adult physical and sexual abuse
CPT/HCPCS: 36415; 72192; 74177; 80053; 81001; 83605; 83735; 85025; 85610; 85730; 87040; 87070; 87086; 87205; 96361; 96365; 96375; 99285

== ENCOUNTER → 2018-08-19 | Outpatient (CLI) | payer BC ==
[2018-08-19 17:16] LABS: HCT 36.5 % (34.0-46.0); HGB 11.3 gm/dL (11.4-16.0); Hypochromasia Slight; MCH 27.5 pg (25.0-35.0); MCV 88.6 fL (80.0-100.0); Platelet Count 172 k/uL (150-450); RBC 4.12 m/uL (3.80-5.40); RDW 15.4 % (11.5-15.5); WBC 9.7 k/uL (3.8-10.6)
== END | disposition home or self-care (01) ==
LOC: LABWHC1 16:40
PROVIDERS: ATTEND Obstetrics & Gynecology
DX: N89.8 Other specified noninflammatory disorders of vagina (principal); R50.9 Fever, unspecified
CPT/HCPCS: 36415; 85027; 87070; 87205

== ENCOUNTER 2019-01-11 12:30 | Emergency (ER) | payer BC ==
[2019-01-11 12:48] VITALS: RESP 18
[2019-01-11] MEDS ORDERED: SODIUM CHLORIDE 0.9% 1,000 ML IV STA (13:36)
[2019-01-11] MEDS ORDERED: ONDANSETRON 4 MG/2 ML VIAL IVP STA (13:36)
[2019-01-11] MEDS ORDERED: MORPHINE SULFATE 4 MG/ML SYRINGE IV STA (13:36)
--- NOTE | 2019-01-11 13:50 | ED ---
Neuro HPI - General Chief Complaint: Neuro Symptoms/Deficit Stated Complaint: Confused/near syncope Time Seen by Provider: 01/11/19 13:22 Source: patient, RN notes reviewed, old records reviewed Mode of arrival: wheelchair Limitations: no limitations - History of Present Illness Is the patient presenting with stroke symptoms?: No -: hour(s) Initial Comments: This is a 33-year-old female with multiple medical complaints. Patient coming with persistent nausea vomiting for a few days 9 and headache which is one on for weeks to months and current neurological evaluation and workup for possible neurological disease including possible MS. Patient does follow with Dr. Espinoza regarding these neurological issues. Patient herself states that her appetite is severely diminished lately she got to the point where she felt very weak and very shaky and confused per . Other than Lexapro patient takes no medications. Drug or alcohol abuse. Just persistent nausea vomiting Location: speech, right face, right arm (Numbness and tingling) History of same: No Place: home Severity: mild Quality: numb, tingling Improves With: none Worsens With: none On Anticoagulants: No Context: gradual onset Associated Symptoms: confusion (Family), malaise, weakness, other (Aching) - Related Data Home Medications: Home Medications Medication Instructions Recorded Confirmed Ibuprofen 800 mg PO Q6H PRN 01/11/19 01/11/19 Previous Rx's Medication Instructions Recorded FLUoxetine HCL [PROzac] 20 mg PO BID #60 cap 07/21/18 Allergies/Adverse Reactions: Allergies Allergy/AdvReac Type Severity Reaction Status Date / Time latex Allergy Swelling Verified 01/11/19 13:17 Review of Systems ROS Statement: Those systems with pertinent positive or pertinent negative responses have been documented in the HPI. ROS Other: All systems not noted in ROS Statement are negative. General Exam Limitations: no limitations General appearance: alert, in no apparent distress Head exam: Present: atraumatic, normocephalic, normal inspection Eye exam: Present: normal appearance, PERRL (Patient does have Blue Sclera bilateral), EOMI. Absent: scleral icterus, conjunctival injection, periorbital swelling ENT exam: Present: normal exam, mucous membranes moist Neck exam: Present: normal inspection. Absent: tenderness, meningismus, lymphadenopathy Respiratory exam: Present: normal lung sounds bilaterally. Absent: respiratory distress, wheezes, rales, rhonchi, stridor Cardiovascular Exam: Present: regular rate, normal rhythm, normal heart sounds. Absent: systolic murmur, diastolic murmur, rubs, gallop, clicks GI/Abdominal exam: Present: soft, normal bowel sounds. Absent: distended, tenderness, guarding, rebound, rigid Extremities exam: Present: normal inspection, full ROM, normal capillary refill. Absent: tenderness, pedal edema, joint swelling, calf tenderness Back exam: Present: normal inspection Neurological exam: Present: alert, oriented X3, CN II-XII intact Psychiatric exam: Present: normal affect, normal mood Skin exam: Present: warm, dry, intact, normal color. Absent: rash Stroke MDM - Lab Data Result diagrams: 01/11/19 13:57 01/11/19 13:57 Lab Results 01/11/19 01/11/19 01/11/19 Range/Units 13:57 13:57 13:57 WBC 6.8 (3.8-10.6) k/uL RBC 4.35 (3.80-5.40) m/uL Hgb 13.4 (11.4-16.0) gm/dL Hct 39.2 (34.0-46.0) % MCV 89.9 (80.0-100.0) fL MCH 30.8 (25.0-35.0) pg MCHC 34.3 (31.0-37.0) g/dL RDW 12.5 (11.5-15.5) % Plt Count 202 (150-450) k/uL Neutrophils % 63 % Lymphocytes % 28 % Monocytes % 5 % Eosinophils % 1 % Basophils % 0 % Neutrophils # 4.3 (1.3-7.7) k/uL Lymphocytes # 1.9 (1.0-4.8) k/uL Monocytes # 0.4 (0-1.0) k/uL Eosinophils # 0.1 (0-0.7) k/uL Basophils # 0.0 (0-0.2) k/uL PT (9.0-12.0) sec INR (<1.2) APTT (22.0-30.0) sec Sodium 141 (137-145) mmol/L Potassium 3.8 (3.5-5.1) mmol/L Chloride 105 (98-107) mmol/L Carbon Dioxide 30 (22-30) mmol/L Anion Gap 6 mmol/L BUN 7 (7-17) mg/dL Creatinine 0.59 (0.52-1.04) mg/dL Est GFR (CKD-EPI)AfAm >90 (>60 ml/min/1.73 sqM) Est GFR (CKD-EPI)NonAf >90 (>60 ml/min/1.73 sqM) Glucose 101 H (74-99) mg/dL Plasma Lactic Acid Seymour 1.1 (0.7-2.0) mmol/L Calcium 9.3 (8.4-10.2) mg/dL Phosphorus 2.7 (2.5-4.5) mg/dL Magnesium 2.2 (1.6-2.3) mg/dL Total Bilirubin 0.6 (0.2-1.3) mg/dL AST 20 (14-36) U/L ALT 28 (9-52) U/L Alkaline Phosphatase 28 L (38-126) U/L Creatine Kinase 47 (30-135) U/L Troponin I (0.000-0.034) ng/mL NT-Pro-B Natriuret Pep pg/mL Total Protein 6.9 (6.3-8.2) g/dL Albumin 4.2 (3.5-5.0) g/dL TSH 0.726 (0.465-4.680) mIU/L Urine Color Urine Appearance (Clear) Urine pH (5.0-8.0) Ur Specific Edelstein (1.001-1.035) Urine Protein (Negative) Urine Glucose (UA) (Negative) Urine Ketones (Negative) Urine Blood (Negative) Urine Nitrite (Negative) Urine Bilirubin (Negative) Urine Urobilinogen (<2.0) mg/dL Ur Leukocyte Esterase (Negative) 01/11/19 01/11/19 01/11/19 Range/Units 13:57 13:57 13:57 WBC (3.8-10.6) k/uL RBC (3.80-5.40) m/uL Hgb (11.4-16.0) gm/dL Hct (34.0-46.0) % MCV (80.0-100.0) fL MCH (25.0-35.0) pg MCHC (31.0-37.0) g/dL RDW (11.5-15.5) % Plt Count (150-450) k/uL Neutrophils % % Lymphocytes % % Monocytes % % Eosinophils % % Basophils % % Neutrophils # (1.3-7.7) k/uL Lymphocytes # (1.0-4.8) k/uL Monocytes # (0-1.0) k/uL Eosinophils # (0-0.7) k/uL Basophils # (0-0.2) k/uL PT 10.7 (9.0-12.0) sec INR 1.0 (<1.2) APTT 25.7 (22.0-30.0) sec Sodium (137-145) mmol/L Potassium (3.5-5.1) mmol/L Chloride (98-107) mmol/L Carbon Dioxide (22-30) mmol/L Anion Gap mmol/L BUN (7-17) mg/dL Creatinine (0.52-1.04) mg/dL Est GFR (CKD-EPI)AfAm (>60 ml/min/1.73 sqM) Est GFR (CKD-EPI)NonAf (>60 ml/min/1.73 sqM) Glucose (74-99) mg/dL Plasma Lactic Acid Seymour (0.7-2.0) mmol/L Calcium (8.4-10.2) mg/dL Phosphorus (2.5-4.5) mg/dL Magnesium (1.6-2.3) mg/dL Total Bilirubin (0.2-1.3) mg/dL AST (14-36) U/L ALT (9-52) U/L Alkaline Phosphatase (38-126) U/L Creatine Kinase (30-135) U/L Troponin I <0.012 (0.000-0.034) ng/mL NT-Pro-B Natriuret Pep 269 pg/mL Total Protein (6.3-8.2) g/dL Albumin (3.5-5.0) g/dL TSH (0.465-4.680) mIU/L Urine Color Urine Appearance (Clear) Urine pH (5.0-8.0) Ur Specific Edelstein (1.001-1.035) Urine Protein (Negative) Urine Glucose (UA) (Negative) Urine Ketones (Negative) Urine Blood (Negative) Urine Nitrite (Negative) Urine Bilirubin (Negative) Urine Urobilinogen (<2.0) mg/dL Ur Leukocyte Esterase (Negative) 01/11/19 Range/Units 14:40 WBC (3.8-10.6) k/uL RBC (3.80-5.40) m/uL Hgb (11.4-16.0) gm/dL Hct (34.0-46.0) % MCV (80.0-100.0) fL MCH (25.0-35.0) pg MCHC (31.0-37.0) g/dL RDW (11.5-15.5) % Plt Count (150-450) k/uL Neutrophils % % Lymphocytes % % Monocytes % % Eosinophils % % Basophils % % Neutrophils # (1.3-7.7) k/uL Lymphocytes # (1.0-4.8) k/uL Monocytes # (0-1.0) k/uL Eosinophils # (0-0.7) k/uL Basophils # (0-0.2) k/uL PT (9.0-12.0) sec INR (<1.2) APTT (22.0-30.0) sec Sodium (137-145) mmol/L Potassium (3.5-5.1) mmol/L Chloride (98-107) mmol/L Carbon Dioxide (22-30) mmol/L Anion Gap mmol/L BUN (7-17) mg/dL Creatinine (0.52-1.04) mg/dL Est GFR (CKD-EPI)AfAm (>60 ml/min/1.73 sqM) Est GFR (CKD-EPI)NonAf (>60 ml/min/1.73 sqM) Glucose (74-99) mg/dL Plasma Lactic Acid Seymour (0.7-2.0) mmol/L Calcium (8.4-10.2) mg/dL Phosphorus (2.5-4.5) mg/dL Magnesium (1.6-2.3) mg/dL Total Bilirubin (0.2-1.3) mg/dL AST (14-36) U/L ALT (9-52) U/L Alkaline Phosphatase (38-126) U/L Creatine Kinase (30-135) U/L Troponin I (0.000-0.034) ng/mL NT-Pro-B Natriuret Pep pg/mL Total Protein (6.3-8.2) g/dL Albumin (3.5-5.0) g/dL TSH (0.465-4.680) mIU/L Urine Color Yellow Urine Appearance Clear (Clear) Urine pH 8.5 H (5.0-8.0) Ur Specific Edelstein 1.019 (1.001-1.035) Urine Protein Trace H (Negative) Urine Glucose (UA) Negative (Negative) Urine Ketones Negative (Negative) Urine Blood Negative (Negative) Urine Nitrite Negative (Negative) Urine Bilirubin Negative (Negative) Urine Urobilinogen 3.0 (<2.0) mg/dL Ur Leukocyte Esterase Negative (Negative) - NIH Stroke Scale 1a. Level of Consciousness: (0) alert 1b. LOC Questions: (0) answers correctly 1c. LOC Commands: (0) performs tasks correctly 2. Best Gaze: (0) normal 3. Visual: (0) no visual loss 4. Facial Palsy: (0) normal symmetrical movement 5a. Motor Arm Left: (0) no drift 5b. Motor Arm Right: (0) no drift 6a. Motor Leg Left: (0) no drift 6b. Motor Leg Right: (0) no drift 7. Limb Ataxia: (0) absent 8. Sensory: (0) normal 9. Best Language: (0) no aphasia 10. Dysarthria: (0) normal 11. Extinction/Inattention: (0) no abnormality - Thrombolytic Inclusion/Exclusion Thrombolytic Exclusion Criteria: Onset of Symptoms Unknown - Medical Decision Making 33 female the ER today. She presents today for evaluation regards to weakness shaking episode nausea vomiting episode. Labwork is normal CT is negative patient feels good for discharge home feeling better with IV hydration and symptom management - Radiology Data Radiology results: report reviewed (CT brain chest x-rays negative for acute disease), image reviewed - EKG Data -: EKG Interpreted by Me (EKG shows sinus bradycardia rate of 50, AR 14, QRS 80, QTC 429) Past Medical History Additional Past Medical History / Comment(s): adenomyosis, osteogenesis imperfecta, ovarian cysts History of Any Multi-Drug Resistant Organisms: None Reported Past Surgical History: Section, Hysterectomy, Orthopedic Surgery Additional Past Surgical History / Comment(s): left elbow Past Anesthesia/Blood Transfusion Reactions: No Reported Reaction Past Psychological History: Depression Smoking Status: Current every day smoker Past Alcohol Use History: Occasional Past Drug Use History: Marijuana - Past Family History Mother Family Medical History: Cancer Additional Family Medical History / Comment(s): cervical Course Vital Signs 01/11/19 01/11/19 12:45 13:17 Temperature 98.5 F Pulse Rate 71 63 Respiratory 18 18 Rate Blood Pressure 100/63 106/64 O2 Sat by Pulse 100 100 Oximetry - Reevaluation(s) Reevaluation #1: 01/11/19 15:58 Medical records reviewed Reevaluation #2: 01/11/19 15:58 Symptoms are currently improved Disposition Clinical Impression: Weakness, Nausea & vomiting Disposition: HOME SELF-CARE Condition: Good Instructions (If sedation given, give patient instructions): Acute Nausea and Vomiting (ED) Is patient prescribed a controlled substance at d/c from ED?: No Referrals: Beto Morales MD [Primary Care Provider] - 1-2 days
[2019-01-11 14:18] LABS: ALT 28 U/L (9-52); AST 20 U/L (14-36); African American GFR (CKD) >90 (>60 ml/min/1.73 sqM); Albumin 4.2 g/dL (3.5-5.0); Alkaline Phosphatase 28 U/L (38-126); Anion Gap 6 mmol/L; Blood Urea Nitrogen 7 mg/dL (7-17); Calcium 9.3 mg/dL (8.4-10.2); Carbon Dioxide 30 mmol/L (22-30); Chloride 105 mmol/L (98-107); Creatine Kinase 47 U/L (30-135); Glucose 101 mg/dL (74-99); Magnesium 2.2 mg/dL (1.6-2.3); Phosphorus 2.7 mg/dL (2.5-4.5); Potassium 3.8 mmol/L (3.5-5.1); Sodium 141 mmol/L (137-145); Total Bilirubin 0.6 mg/dL (0.2-1.3); Total Protein 6.9 g/dL (6.3-8.2)
[2019-01-11 14:22] LABS: Partial Thromboplastin Time 25.7 sec (22.0-30.0); Prothrombin Time 10.7 sec (9.0-12.0)
[2019-01-11 14:31] LABS: Basophils % (A) 0 %; Eosinophils # (A) 0.1 k/uL (0-0.7); Eosinophils % (A) 1 %; HCT 39.2 % (34.0-46.0); HGB 13.4 gm/dL (11.4-16.0); Lymphocytes # (A) 1.9 k/uL (1.0-4.8); Lymphocytes % (A) 28 %; MCH 30.8 pg (25.0-35.0); MCHC 34.3 g/dL (31.0-37.0); MCV 89.9 fL (80.0-100.0); Mean Platelet Volume 8.8; Monocytes # (A) 0.4 k/uL (0-1.0); Monocytes % (A) 5 %; Neutrophils # (A) 4.3 k/uL (1.3-7.7); Neutrophils % (A) 63 %; Platelet Count 202 k/uL (150-450); RBC 4.35 m/uL (3.80-5.40); RDW 12.5 % (11.5-15.5); WBC 6.8 k/uL (3.8-10.6)
[2019-01-11 15:03] LABS: Appearance,Urine Clear (Clear); Bilirubin,Urine Negative (Negative); Blood,Urine Negative (Negative); Color,Urine Yellow; Glucose,Urine (UA) Negative (Negative); Ketones,Urine Negative (Negative); Leukocyte Esterase,Urine Negative (Negative); Nitrite,Urine Negative (Negative); PH, Urine 8.5 (5.0-8.0); Protein,Urine Trace (Negative); Specific Gravity,Urine 1.019 (1.001-1.035)
--- NOTE | 2019-01-11 15:06 | CT ---
EXAMINATION TYPE: CT brain wo con DATE OF EXAM: 01/11/2019 COMPARISON: None HISTORY: 33-year-old female with confusion, altered mental status TECHNIQUE: Examination was done in axial plane without intravenous contrast. Coronal and sagittal r econstructions performed. CT DLP: 1099.4 mGycm Automated exposure control for dose reduction was used. FINDINGS: There is no evidence of acute intracranial hemorrhage, acute ischemic changes, mass, mass-effect, or extra-axial fluid collection. There is no effacement of cerebral sulci or basal subarachnoid cister ns. There is no hydrocephalus. There is no midline shift. Burton-white matter distinction is preserv ed. Mastoid air cells well pneumatized. Suggestion of a polyp or mucous retention cyst along the floor of the right maxillary sinus. Orbits and globes are intact. IMPRESSION: No acute intracranial abnormality seen. Suggestion of a polyp or mucosal retention cyst along the summer or the right maxillary sinus.
[2019-01-11 16:22] VITALS: BP 116/70; PULSE 58; TEMP 98.7
== END 2019-01-11 16:22 | disposition home or self-care (01) ==
LOC: EC 12:30
DX: R53.1 Weakness (principal); R11.2 Nausea with vomiting, unspecified; R41.0 Disorientation, unspecified; R55 Syncope and collapse; R20.2 Paresthesia of skin; R20.0 Anesthesia of skin; F17.200 Nicotine dependence, unspecified, uncomplicated; Z91.040 Latex allergy status
CPT/HCPCS: 36415; 93005; 83880; 80053; 82550; 83605; 83735; 84100; 84443; 84484; 85025; 85610; 85730; 81003; 70450; 99285; 96374; 96375; 96361; J2270; J2405

== ENCOUNTER → 2019-01-20 | Outpatient (CLI) | payer BC ==
--- NOTE | 2019-01-20 09:33 | MR ---
EXAMINATION TYPE: MR brain/cspine wo/w DATE OF EXAM: 01/20/2019 COMPARISON: CT brain January 11, 2019. Cervical spine x-ray November 09, 2012. HISTORY: Headache/Dizziness/Cervicalgia/Rt side head pain into face and teeth TECHNIQUE: Multiplanar, multisequence images of the cervical spine, brain, and brainstem are all performed witho ut and with IV contrast, utilizing 5 mL intravenous Gadavist . FINDINGS: BRAIN: Diffusion weighted images demonstrate no evidence of a recent infarct or other diffusion abnormality. There is no extra-axial fluid collection or significant white matter signal abnormality. The ventr icular system and cisternal spaces are normal in size and appearance. The brain volume is age approp riate. Midline structures demonstrate normal morphology. The craniocervical junction appears within normal limits. Post contrast images demonstrate no abnormal enhancement. The dural venous sinuses appear pa tent. There is roughly 2.0 cm mucous retention cyst or polyp in the posterior inferior right maxillar y sinus. Remainder of paranasal sinuses are clear. Globes are intact bilaterally. Nasal septum is sli ghtly deviated to right of midline. No suspicious opacification of mastoid air cells. IMPRESSION: No significant findings seen to account for patient's symptoms of headache and dizziness. MRI CERVICAL SPINE: FINDINGS: Sagittal images of the cervical spine show the craniocervical junction to appear within nor mal limits. The cervical and upper thoracic spinal cord is normal in course, caliber, and signal. V ertebral alignment is anatomic. The vertebral body and intravertebral disk heights are normal. Tiny posterior disc herniation C5-C6 and C6-C7 level effacing the anterior thecal sac. The bone marrow sig nal intensity is within normal limits. No suspicious enhancement is seen. Axial images show the C2-C3, C3-C4, C4-C5 levels all to appear within normal limits. Axial images at the C5-C6 level shows central disc protrusion mildly effacing the anterior thecal sac , bilateral neural foramina are patent. Axial images at C6-C7 levels show more broad-based posterior disc protrusion mildly effaces the anter ior thecal sac and causing mild bilateral neural foraminal narrowing. Axial images at C7-T1 level are within normal limits. IMPRESSION: Small disc herniations at C5-C6 and C6-C7 levels.
== END ==
LOC: RADMRIMAIN 07:48
PROVIDERS: ATTEND Psychiatry & Neurology Neurology
DX: M50.222 Other cervical disc displacement at C5-C6 level (principal); R51 Headache; R42 Dizziness and giddiness
CPT/HCPCS: 70553; 72156; A9585